=== PATIENT | female | born 1990 | race Caucasian/White ===

== ENCOUNTER 2017-01-22 09:00 | Outpatient (CLI) | payer OTHER | END 2017-01-22 09:01 | disposition home or self-care (01) | DX: N76.0 Acute vaginitis (principal) ==

== ENCOUNTER 2019-07-29 08:29 | Emergency (ER) | payer OTHER ==
--- NOTE | 2019-07-29 08:39 | ED Physician Documentation ---
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 No: Moving Associated symptoms: No: Weakness, Numbness Similar symptoms before: Has not had sx before Recently seen: Not recently seen Review of Systems Skin: reports: Laceration (s) Neurologic: denies: Focal weakness, Numbness, Near syncope PD PAST MEDICAL HISTORY - Past Medical History Past Medical History: No Cardiovascular: None Endocrine/Autoimmune: None - Present Medications Home Medications: Ambulatory Orders Medication Instructions Recorded Confirmed cephALEXin [Keflex] 250 mg PO ONCE 07/29/19 07/29/19 - Allergies Allergies/Adverse Reactions: Allergies Allergy/AdvReac Type Severity Reaction Status Date / Time No Known Drug Allergies Allergy Verified 07/29/19 08:39 PD ED PE NORMAL - Vitals Vital signs reviewed: Yes - General General: Alert and oriented X 3, No acute distress, Well developed/nourished - Derm Derm: Normal color, Warm and dry - Extremities Extremities: Other (The right index finger tip shows a partial thickness avulsion off the skin. It does not go down to the fatty tissue. It does appear like some coffee grind in the wound which is irrigated by nursing staff. There is no active bleeding at this time. The very tip of the nail is cut back but there is no real disruption of the nailbed. There is no injury at the joints.) - Neuro Neuro: Alert and oriented X 3, No motor deficit, No sensory deficit, Normal speech Results - Vitals Vitals: Vital Signs - 24 hr 07/29/19 08:36 Temperature 36.0 C L Heart Rate 58 L Respiratory 16 Rate Blood Pressure 120/80 O2 Saturation 98 Oxygen O2 Source Room air PD MEDICAL DECISION MAKING - ED course Complexity details: re-evaluated patient (The wound had some lidocaine on it for a few minutes to help with numbing and then it was cleansed by nursing staff with removal of the coffee ground material. It is now clean and is dressed by nursing staff. She was given a tetanus booster as well.), considered differential, d/w patient Departure - Departure Disposition: 01 Home, Self Care Clinical Impression: Amputation of finger tip Qualifiers: Encounter type: initial encounter Qualified Code(s): S68.119A - Complete traumatic metacarpophalangeal amputation of unspecified finger, initial encounter Condition: Stable Record reviewed to determine appropriate education?: Yes Instructions: ED Laceration Amputation Finger Tip Open Tx Follow-Up: Jose Rafael Sheikh DO [Primary Care Provider] - Comments: Cleanse wound couple times a day with soap and water and apply ointment lightly to keep it slightly moist. Keep it bandaged during work and such to protect it but have it open at other times so does not get overly moist. Tylenol ibuprofen or naproxen as needed for pains. This looks just partial thickness so should healing without scarring over a week or so. Recheck if signs of infection. You did receive a tetanus booster as well today and that should be good for 10 years.
[2019-07-29 08:41] VITALS: BP 120/80
[2019-07-29] MEDS ORDERED: IBUPROFEN 600 MG TABLET PO STA (08:49)
[2019-07-29] MEDS ORDERED: TETANUS/DIPHTHERIA/PERTUSSIS 0.5 ML SYRINGE IM ONE (08:49)
[2019-07-29] MEDS ORDERED: LIDOCAINE OINTMENT 5% 35.44 GM TUBE TOP STA (08:49)
[2019-07-29] MEDS ORDERED: ACETAMINOPHEN 325 MG TABLET PO STA (08:49)
== END 2019-07-29 09:23 | disposition home or self-care (01) ==
LOC: ED 08:29
DX: S68.620A Partial traumatic transphalangeal amputation of right index finger, initial encounter (principal); W29.0XXA Contact with powered kitchen appliance, initial encounter; Y93.89 Activity, other specified; Y99.0 Civilian activity done for income or pay; Z23 Encounter for immunization
CPT/HCPCS: 90471; 90715; 99283; A9270

== ENCOUNTER 2020-10-03 13:05 | Emergency (ER) | payer OTHER ==
--- NOTE | 2020-10-03 14:12 | ED Physician Documentation ---
History of Present Illness - Stated complaint Stated Complaint: BODY PX - Chief complaint Chief Complaint: General - History obtained from History obtained from: Patient - Additonal information Additional information: For the last 2 days she has had epigastric pain radiating like a band around to her back, feels like her bra is on too tight. It got worse today when picking up her dog. It is worse with motion and twisting. Does not get worse after eating. There is no associated fever or shortness of breath. No history of abdominal surgeries or other major health issues. Review of Systems Constitutional: denies: Fever, Chills Nose: denies: Rhinorrhea / runny nose, Congestion Cardiac: reports: Chest pain / pressure. 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 : None HEENT: None Psych: None Musculoskeletal: None Derm: None - Past Surgical History Ortho: Arthroscopic surgery - Present Medications Home Medications: Ambulatory Orders Medication Instructions Recorded Confirmed cephALEXin [Keflex] 250 mg PO ONCE 07/29/19 07/29/19 Cyclobenzaprine [Flexeril] 10 mg PO TID PRN #20 tablet 10/03/20 - Allergies Allergies/Adverse Reactions: Allergies Allergy/AdvReac Type Severity Reaction Status Date / Time No Known Drug Allergies Allergy Verified 10/03/20 13:10 - Social History Does the pt smoke?: No Smoking Status: Never smoker Does the pt drink ETOH?: Yes Does the pt have substance abuse?: No - Immunizations Immunizations are current?: Yes Immunizations: TDAP >10years/unknown PD ED PE NORMAL - Vitals Vital signs reviewed: Yes - General General: Alert and oriented X 3, No acute distress - HEENT HEENT: Pharynx benign - Neck Neck: Supple, no meningeal sign, No bony TTP - Cardiac Cardiac: RRR, No murmur - Respiratory Respiratory: No respiratory distress, Clear bilaterally - Abdomen Abdomen: Normal bowel sounds, Soft, Non tender - Back Back: Other (She does have some seemingly muscular tenderness around the ribs on both sides low down) - Derm Derm: Normal color, Warm and dry - Extremities Extremities: No edema, No calf tenderness / cord - Neuro Neuro: Alert and oriented X 3, Normal speech Results - Vitals Vitals: Vital Signs - 24 hr 10/03/20 10/03/20 10/03/20 13:10 13:30 14:17 Temperature 37.3 C Heart Rate 79 86 67 Respiratory 18 18 18 Rate Blood Pressure 130/68 137/102 H 121/69 O2 Saturation 98 100 96 10/03/20 14:30 Temperature Heart Rate 67 Respiratory 18 Rate Blood Pressure 106/50 L O2 Saturation 96 Oxygen O2 Source Room air - EKG (time done) 1415 Rate: Rate (enter#) (76) Rhythm: NSR [place]: Normal Intervals: Normal [place] QRS: Normal Ischemia: Normal ST segments Computer interpretation: Agree with computer - Labs Labs: Laboratory Tests 10/03/20 10/03/20 10/03/20 13:58 14:30 14:30 WBC 7.1 RBC 4.67 Hgb 13.3 Hct 40.7 MCV 87.2 MCH 28.5 MCHC 32.7 RDW 13.0 Plt Count 293 MPV 8.9 Neut # (Auto) 5.0 Lymph # (Auto) 1.6 [place] # (Auto) 0.4 Eos # (Auto) 0.1 Baso # (Auto) 0.1 Absolute Nucleated RBC 0.00 Nucleated RBC % 0.0 Sodium 136 Potassium 3.8 Chloride 105 Carbon Dioxide 24 Anion Gap 7.0 BUN 11 Creatinine 0.7 Estimated GFR (MDRD) 100 Glucose 97 Calcium 9.2 Total Bilirubin 0.5 AST 15 ALT 15 Alkaline Phosphatase 53 Troponin I High Sens Total Protein 8.2 Albumin 4.4 Globulin 3.8 Albumin/Globulin Ratio 1.2 Lipase 34 Urine Color YELLOW Urine Clarity CLEAR Urine pH 6.0 Ur Specific [place] 1.010 Urine Protein NEGATIVE Urine Glucose (UA) NEGATIVE Urine Ketones NEGATIVE Urine Occult Blood MODERATE H Urine Nitrite NEGATIVE Urine Bilirubin NEGATIVE Urine Urobilinogen 0.2 (NORMAL) Ur Leukocyte Esterase NEGATIVE Urine RBC 0-5 Urine WBC 0-3 Ur Squamous Epith Cells RARE Squamous Urine Bacteria Few Ur Microscopic Review INDICATED Urine Culture Comments NOT INDICATED Urine HCG, Qual NEGATIVE 10/03/20 14:30 WBC RBC Hgb Hct MCV MCH MCHC RDW Plt Count MPV Neut # (Auto) Lymph # (Auto) [place] # (Auto) Eos # (Auto) Baso # (Auto) Absolute Nucleated RBC Nucleated RBC % Sodium Potassium Chloride Carbon Dioxide Anion Gap BUN Creatinine Estimated GFR (MDRD) Glucose Calcium Total Bilirubin AST ALT Alkaline Phosphatase Troponin I High Sens < 2.3 L Total Protein Albumin Globulin Albumin/Globulin Ratio Lipase Urine Color Urine Clarity Urine pH Ur Specific [place] Urine Protein Urine Glucose (UA) Urine Ketones Urine Occult Blood Urine Nitrite Urine Bilirubin Urine Urobilinogen Ur Leukocyte Esterase Urine RBC Urine WBC Ur Squamous Epith Cells Urine Bacteria Ur Microscopic Review Urine Culture Comments Urine HCG, Qual PD MEDICAL DECISION MAKING - ED course ED course: Is worse with twisting and bending, so seems most likely to be musculoskeletal with this pain that is basically high epigastric and radiating around like a band on both sides but the differential diagnosis includes vascular issues heart problems or biliary etiology. She is nontender so doubt active gallbladder disease. She is PE RC negative. Departure - Departure Disposition: 01 Home, Self Care Clinical Impression: Epigastric pain Condition: Good Record reviewed to determine appropriate education?: Yes Instructions: ED Acute Pain [facility] Prescriptions: Cyclobenzaprine [Flexeril] 10 mg PO TID PRN #20 tablet PRN Reason: Spasms Comments: Pain seems most consistent with muscular etiology. Return for new or worsening symptoms. Follow-up with your physician. Ibuprofen as needed for the pain. Do not drink or drive with a muscle relaxer.
[2020-10-03 14:24] LABS: BILIRUBIN,URINE NEGATIVE (NEGATIVE); GLUCOSE, URINE (UA) NEGATIVE (NEGATIVE); KETONES,URINE (UA) NEGATIVE (NEGATIVE); LEUKOCYTE ESTERASE, URINE NEGATIVE (NEGATIVE); NITRITE,URINE NEGATIVE (NEGATIVE); OCCULT BLOOD,URINE MODERATE (NEGATIVE); PROTEIN,URINE NEGATIVE (NEGATIVE); UROBILINOGEN,URINE 0.2 (NORMAL) E.U./dL (NORMAL)
[2020-10-03 14:27] LABS: CLARITY,URINE CLEAR (CLEAR); HCG UR QUAL NEGATIVE
[2020-10-03 14:35] LABS: BASOPHILS # (AUTO) 0.1 10^3/uL (0.0-0.1); BASOPHILS % (AUTO) 0.7 %; EOSINOPHILS # (AUTO) 0.1 10^3/uL (0.0-0.7); HGB - HEMOGLOBIN 13.3 g/dL (12.0-16.0); LYMPHOCYTES # (AUTO) 1.6 10^3/uL (1.5-3.5); LYMPHOCYTES % (AUTO) 22.1 %; MEAN CORPUSCULAR HEMOGLOBIN 28.5 pg (27.0-31.0); MEAN CORPUSCULAR HGB CONC 32.7 g/dL (32.0-36.0); MEAN CORPUSCULAR VOLUME 87.2 fL (81.0-99.0); MEAN PLATELET VOLUME 8.9 fL (7.9-10.8); MONOCYTES # (AUTO) 0.4 10^3/uL (0.0-1.0); MONOCYTES % (AUTO) 4.9 %; NEUTROPHILS % (AUTO) 70.7 %; PLT - PLATELET COUNT 293 10^3/uL (130-450); RED BLOOD COUNT 4.67 10^6/uL (4.20-5.40); WHITE BLOOD COUNT 7.1 x10^3/uL (4.8-10.8)
--- NOTE | 2020-10-03 14:42 | XRAY Report ---
PROCEDURE: Chest 1 View X-Ray INDICATIONS: low chest pain TECHNIQUE: One view of the chest was acquired. COMPARISON: None. FINDINGS: Surgical changes and devices: None. Lungs and pleura: No pleural effusions or pneumothorax. Lungs are clear. Mediastinum: Mediastinal contours appear normal. Heart size is normal. Bones and chest wall: No suspicious bony lesions. Overlying soft tissues appear unremarkable. IMPRESSION: Chest without acute cardiopulmonary abnormalities. Reviewed by: Selvin Pro MD on 10/03/2020 2:40 PM PST Approved by: Selvin Pro MD on 10/03/2020 2:40 PM PST Station ID: [id number]
[2020-10-03 14:44] LABS: BACTERIA,URINE Few /HPF (None Seen); RBC,URINE 0-5 /HPF (0-5); SQUAMOUS EPITHELIAL CELL,UR RARE Squamous (<= Few)
[2020-10-03 14:52] LABS: ALBUMIN 4.4 g/dL (3.2-5.5); ALBUMIN/GLOBULIN RATIO 1.2 (1.0-2.2); BILIRUBIN,TOTAL 0.5 mg/dL (0.2-1.0); CALCIUM 9.2 mg/dL (8.5-10.3); CREATININE 0.7 mg/dL (0.4-1.0); TOTAL PROTEIN 8.2 g/dL (6.7-8.2)
[2020-10-03 14:59] VITALS: BP 106/50
== END 2020-10-03 15:10 | disposition home or self-care (01) ==
LOC: ED 13:05
DX: R10.13 Epigastric pain (principal)
CPT/HCPCS: 36415; 71045; 80053; 81001; 81003; 81025; 83690; 84484; 85025; 87086; 93005; 99284

== ENCOUNTER 2022-08-19 08:59 | Outpatient (CLI) | payer OTHER ==
[2022-08-19 12:03] LABS: BASOPHILS % (AUTO) 0.7 %; EOSINOPHILS # (AUTO) 0.2 10^3/uL (0.0-0.7); EOSINOPHILS % (AUTO) 3.1 %; HCT - HEMATOCRIT 37.9 % (37.0-47.0); HGB - HEMOGLOBIN 12.3 g/dL (12.0-16.0); LYMPHOCYTES # (AUTO) 2.1 10^3/uL (1.5-3.5); LYMPHOCYTES % (AUTO) 37.4 %; MEAN CORPUSCULAR HGB CONC 32.5 g/dL (32.0-36.0); MEAN CORPUSCULAR VOLUME 86.1 fL (81.0-99.0); MEAN PLATELET VOLUME 9.5 fL (7.9-10.8); MONOCYTES # (AUTO) 0.3 10^3/uL (0.0-1.0); MONOCYTES % (AUTO) 5.8 %; NEUTROPHILS # (AUTO) 2.9 10^3/uL (1.5-6.6); NEUTROPHILS % (AUTO) 52.8 %; PLT - PLATELET COUNT 266 10^3/uL (130-450); WHITE BLOOD COUNT 5.5 x10^3/uL (4.8-10.8)
[2022-08-19 12:36] LABS: THYROID STIMULATING HORMONE 0.76 uIU/mL (0.34-5.60)
[2022-08-19 12:38] LABS: ALBUMIN 3.8 g/dL (3.2-5.5); ALBUMIN/GLOBULIN RATIO 1.1 (1.0-2.2); ALKALINE PHOSPHATASE 46 IU/L (42-121); ALT ALANINE AMINOTRANSFERASE 20 IU/L (10-60); AST ASPARTATE AMINOTRANSFERASE 23 IU/L (10-42); BILIRUBIN,TOTAL 0.6 mg/dL (0.2-1.0); BUN - BLOOD UREA NITROGEN 13 mg/dL (6-20); CARBON DIOXIDE - CO2 26 mmol/L (21-32); CHLORIDE 107 mmol/L (101-111); CHOL/HDL RATIO 4.2 (<4.4); CHOLESTEROL 191 mg/dL; CREATININE 0.8 mg/dL (0.4-1.0); GFR - MDRD 84 (>89); GLUCOSE 98 mg/dL (70-100); HDL CHOLESTEROL 46 mg/dL; LDL CHOLESTEROL,CALCULATED 125 mg/dL; LDL/HDL RATIO 2.7 (<4.4); SODIUM 138 mmol/L (135-145); TOTAL PROTEIN 7.3 g/dL (6.7-8.2); TRIGLYCERIDES 101 mg/dL; VLDL CHOLESTEROL 20 mg/dL
== END 2022-08-19 09:00 | disposition home or self-care (01) ==
LOC: LAB.N 08:59
PROVIDERS: ATTEND Physician Assistant
DX: Z13.9 Encounter for screening, unspecified (principal); Z13.220 Encounter for screening for lipoid disorders; Z13.29 Encounter for screening for other suspected endocrine disorder
CPT/HCPCS: 36415; 80053; 80061; 83721; 84443; 85025

== ENCOUNTER 2023-02-08 15:25 | Outpatient (CLI) | payer OTHER ==
[2023-02-10 20:07] LABS: AFP VALUE 35.2 ng/mL (.); DIA MOM 1.48 (.); DIA VALUE 191.82 pg/mL (.); DSR (BY AGE) 1 IN 570 (.); DSR (SECOND TRIMESTER) 1 IN 1159 (.); GEST. AGE ON COLLECTION DATE 18.4 WEEKS (.); HCG MOM 1.49 (.); HCG VALUE 34665 mIU/mL (.); INSULIN DEP DIABETES No (.); MATERNAL AGE AT EDD 31.5 yr (.); MULTIPLE GESTATION No (.); OPEN SPINA BIFIDA RISK 1 IN 10000 (.); RACE Caucasian (.); RESULTS Report (.); TEST RESULTS *Screen Negative* (.); TRISOMY 18 RISK Not increased (.); UE3 MOM 1.58 (.); UE3 VALUE 2.28 ng/mL (.); WEIGHT 204 lbs (.)
== END 2023-02-08 15:26 | disposition home or self-care (01) ==
LOC: LAB 15:25
PROVIDERS: ATTEND Nurse Practitioner Obstetrics & Gynecology
DX: Z13.79 Encounter for other screening for genetic and chromosomal anomalies (principal)
CPT/HCPCS: 36415; 81511

== ENCOUNTER 2023-02-22 16:00 | Outpatient (CLI) | payer OTHER ==
--- NOTE | 2023-02-23 14:39 | Ultrasound Report ---
PROCEDURE: OB Detailed Eval INDICATIONS: SUPERVISION OF NORMAL OUTSIDE/PRIOR DATING DATA: Last menstrual period (LMP): 10/02/2022. LMP-based estimated date of delivery (MAYELA): 07/09/2023. First dating scan (date and location): 11/27/2022. Estimated date of delivery (MAYELA) from first dating scan: 07/08/2023. The below data below was generated using the working MAYELA of 07/08/2023 TECHNIQUE: Real-time scanning was performed of the fetus, with image documentation and biometric measurements. Endovaginal scanning: Not indicated COMPARISON: None. FINDINGS: General: A single living intrauterine gestation is present. Presentation: Breech Placenta: Placental position is posterior, without previa. Amniotic fluid index: 14.4 cm, normal for gestational age. heart rate: 135 beats per minute. Maternal cervical canal: 4.2 cm long; normal length is 2.5 cm or more. biometrics: Biparietal diameter: 4.77 cm, 20 weeks, 3 days. Head circumference: 18.56 cm, 20 weeks, 6 days. Abdominal circumference: 16.75 cm, 21 weeks, 5 days. Femur length: 3.68 cm, 21 weeks, 5 days. Estimated gestational age from initial scan: 20 weeks, 4 days. Composite gestational age from present scan: 21 weeks, 1 day. Estimated weight and percentile: 436.2 g, 92.6% Measurement variability in biometric dating: +/- 10 days from 12-20 weeks gestation, +/- 2 weeks from 20-30 weeks gestation, +/- 3 weeks at 30 weeks gestation or later. Anatomic survey: Neuro: Ventricles are normal at less than 10 mm. Cisterna magna is normal at 3-11 mm. Cerebellum i s normal in size and morphology. Nuchal skin fold: Normal at less than 6 mm between 14 and 20 weeks gestational age. Face: Nose and lips, facial profile are normal. Spine: No evidence for spina bifida. Heart: 4-chambered heart is present, with normal ventricular outflow tracts. Diaphragm: Diaphragm is intact. Stomach: Left-sided stomach is present. Kidneys: No hydronephrosis. Normal is less than 5 mm in 2nd trimester, less than 7 mm in 3rd trimester. Cord: 3 vessel cord has orthotopic insertion. Bladder: Normal in size. Extremities: All 4 extremities are visualized. 2 uterine fibroids are seen measures 3.1 x 1.9 x 2.4 cm in right anterior myometrium and 3.1 x 2 x 3 cm in left anterior myometrium. Right ovarian cyst is also seen measures 1.5 x 1.8 x 1.5 cm in size. IMPRESSION: 1. Single live intrauterine gestation with fetus in breech presentation. heart rate is 135 bpm. Normal amount of amniotic fluid. Normal growth. Estimated weight is at 92.6%. 2. Normal anatomic survey. 3. 2 maternal uterine fibroids as above. Maternal right ovarian cyst as above. Reviewed by: Javier Peres MD on 02/23/2023 2:38 PM PDT Approved by: Javier Peres MD on 02/23/2023 2:38 PM PDT Station ID: [id number]
== END 2023-02-22 16:01 | disposition home or self-care (01) ==
LOC: DI 16:00
PROVIDERS: ATTEND Nurse Practitioner Obstetrics & Gynecology
DX: O32.1XX0 Maternal care for breech presentation, not applicable or unspecified (principal); O34.12 Maternal care for benign tumor of corpus uteri, second trimester; D25.9 Leiomyoma of uterus, unspecified; O34.82 Maternal care for other abnormalities of pelvic organs, second trimester; N83.201 Unspecified ovarian cyst, right side; Z36.89 Encounter for other specified antenatal screening; Z3A.21 21 weeks gestation of pregnancy

== ENCOUNTER 2023-03-31 08:35 | Outpatient (CLI) | payer OTHER ==
[2023-03-31 10:03] LABS: HCT - HEMATOCRIT 29.8 % (37.0-47.0); HGB - HEMOGLOBIN 9.7 g/dL (12.0-16.0); MEAN CORPUSCULAR HEMOGLOBIN 27.9 pg (27.0-31.0); MEAN CORPUSCULAR HGB CONC 32.6 g/dL (32.0-36.0); MEAN CORPUSCULAR VOLUME 85.6 fL (81.0-99.0); MEAN PLATELET VOLUME 9.2 fL (7.9-10.8); RED BLOOD COUNT 3.48 10^6/uL (4.20-5.40); RED CELL DISTRIBUTION WIDTH 12.8 % (12.0-15.0)
== END 2023-03-31 08:36 | disposition home or self-care (01) ==
LOC: LAB 08:35
PROVIDERS: ATTEND Nurse Practitioner Obstetrics & Gynecology
DX: Z36.9 Encounter for antenatal screening, unspecified (principal)
CPT/HCPCS: 36415; 82950; 85027

== ENCOUNTER 2023-04-05 15:29 | Outpatient (CLI) | payer OTHER ==
[2023-04-05 15:51] VITALS: BP 110/65
[2023-04-05] MEDS ORDERED: FERRIC GLUCONATE 125 MG in SODIUM CHLORIDE 0.9% 100ML 100 ML IV ONE (16:00)
== END 2023-04-05 17:20 | disposition home or self-care (01) ==
LOC: WFO 15:29 → FBP 15:30 → WFO 17:20
PROVIDERS: ATTEND Nurse Practitioner Obstetrics & Gynecology
DX: O99.019 Anemia complicating pregnancy, unspecified trimester (principal); Z3A.00 Weeks of gestation of pregnancy not specified
CPT/HCPCS: 96365; J2916

== ENCOUNTER 2023-04-19 10:58 | Outpatient (CLI) | payer OTHER ==
[2023-04-19] MEDS ORDERED: SODIUM CHLORIDE FLUSH 0.9% 10 ML SYRINGE IVP PRN (11:06)
[2023-04-19] MEDS ORDERED: FERRIC GLUCONATE 125 MG in SODIUM CHLORIDE 0.9% 100ML 100 ML IV ONE (11:30)
[2023-04-19 13:11] VITALS: BP 110/64
== END 2023-04-19 13:13 | disposition home or self-care (01) ==
LOC: WFO 10:58 → FBP 10:59 → WFO 13:13
PROVIDERS: ATTEND Nurse Practitioner Obstetrics & Gynecology
DX: O99.013 Anemia complicating pregnancy, third trimester (principal); Z3A.00 Weeks of gestation of pregnancy not specified

== ENCOUNTER 2023-05-19 11:45 | Outpatient (CLI) | payer OTHER ==
--- NOTE | 2023-05-19 15:02 | Ultrasound Report ---
PROCEDURE: OB F/U or Repeat INDICATIONS: UTERINE SIZE DATE DISCREPANCY OUTSIDE/PRIOR DATING DATA: Last menstrual period (LMP): 10/02/2022. LMP-based estimated date of delivery (MAYELA): 07/09/2023. First dating scan (date and location): 11/27/2022. Estimated date of delivery (MAYELA) from first dating scan: 07/08/2023. The below data below was generated using the ultrasound MAYELA of 07/08/2023 TECHNIQUE: Real-time scanning was performed of the fetus, with image documentation and biometric measurements. COMPARISON: 02/22/2023. FINDINGS: General: A single living intrauterine gestation is present. Presentation: Cephalic Placenta: Placental position is posterior, without previa. Amniotic fluid index: 12.6 cm, within normal limits for gestational age. Largest pocket 6.3 cm. heart rate: 145 beats per minute. Maternal cervical canal: 3.3 cm long; normal length is 2.5 cm or more. biometrics: Biparietal diameter: 8.8 cm, 35 weeks 3 days. 96 percentile. Head circumference: 30.9 cm, 34 weeks 3 days. 56 percentile. Abdominal circumference: 31.8 cm, 35 weeks 5 days. 99th percentile. Femur length: 6.7 cm, 34 weeks 5 days. 84th percentile. (Previously 93rd percentile). Estimated gestational age from initial scan: 32 weeks 6 days Composite gestational age from present scan: 35 weeks 1 day Estimated weight and percentile: 2632 g, 97th percentile Measurement variability in biometric dating: +/- 10 days from 12-20 weeks gestation, +/- 2 weeks from 20-30 weeks gestation, +/- 3 weeks at 30 weeks gestation or more. Other: Maternal uterine fibroids. Anterior mid 3.3 x 3.1 x 1.1 cm. Anterior mid 3.4 x 2.6 x 1.4 cm. Anterior fundal 4.6 x 4.6 x 2.2 cm. IMPRESSION: 1. [place] living intrauterine at 35 weeks 1 day based on today's ultrasound. This is dis cordant with the prior dating from initial ultrasound. Fetus is in the 97th percentile for weight. Co ncern for macrosomia. Recommend clinical correlation. Cephalic position. 2. Normal placenta and amniotic fluid. 3. Maternal uterine fibroids x3. Largest measuring 4.6 cm at the fundus. Reviewed by: Idris Silva MD on 05/19/2023 3:01 PM PDT Approved by: Idris Silva MD on 05/19/2023 3:01 PM PDT Station ID: [id number]
== END 2023-05-19 11:46 | disposition home or self-care (01) ==
LOC: DI 11:45
PROVIDERS: ATTEND Nurse Practitioner Obstetrics & Gynecology
DX: O26.843 Uterine size-date discrepancy, third trimester (principal); O34.13 Maternal care for benign tumor of corpus uteri, third trimester; D25.9 Leiomyoma of uterus, unspecified; Z3A.35 35 weeks gestation of pregnancy

== ENCOUNTER 2023-07-02 11:27 | Inpatient (IN) | payer OTHER ==
[2023-07-02] MEDS ORDERED: OXYTOCIN 10 UNIT/ML VIAL IM PRN (12:00)
[2023-07-02] MEDS ORDERED: TERBUTALINE 1 MG/ML VIAL SUBQ PRN (12:00)
[2023-07-02] MEDS ORDERED: LABETALOL 20 MG/4 ML SYRINGE IVP PRN ×3 (12:00)
[2023-07-02] MEDS ORDERED: ACETAMINOPHEN 500 MG TABLET PO PRN (12:00)
[2023-07-02] MEDS ORDERED: hydrALAZINE INJ 20 MG/ML VIAL IVP PRN ×2 (12:00)
[2023-07-02] MEDS ORDERED: lidocaine 1% 20 ML MDV ID PRN (12:00)
[2023-07-02] MEDS ORDERED: SODIUM CHLORIDE FLUSH 0.9% 10 ML SYRINGE IVP PRN ×2 (12:00→21:22)
[2023-07-02] MEDS ORDERED: miSOPROStoL 200 MCG TABLET PR PRN (12:00)
[2023-07-02] MEDS ORDERED: OXYTOCIN/SODIUM CHLORIDE 500 ML IV PRN ×2 (12:00→21:22)
[2023-07-02] MEDS ORDERED: CARBOPROST TROMETHAMINE 250 MCG/ML AMP IM PRN (12:00)
[2023-07-02] MEDS ORDERED: TRANEXAMIC ACID IN NACL 1,000 MG/100 ML BAG IV PRN (12:00)
[2023-07-02] MEDS ORDERED: miSOPROStoL 200 MCG TABLET BC PRN (12:00)
[2023-07-02] MEDS ORDERED: METHYLERGONOVINE 0.2 MG/ML VIAL IM PRN (12:00)
[2023-07-02] MEDS ORDERED: NIFEdipine 10 MG CAPSULE PO PRN (12:00)
[2023-07-02] MEDS ORDERED: fentaNYL 100 MCG/2 ML VIAL IVP PRN ×2 (12:00→19:58)
[2023-07-02 12:10] LABS: BASOPHILS % (AUTO) 0.2 %; EOSINOPHILS % (AUTO) 0.4 %; HCT - HEMATOCRIT 36.2 % (37.0-47.0); LYMPHOCYTES # (AUTO) 1.4 10^3/uL (1.5-3.5); LYMPHOCYTES % (AUTO) 13.7 %; MEAN CORPUSCULAR HGB CONC 33.1 g/dL (32.0-36.0); MEAN CORPUSCULAR VOLUME 84.6 fL (81.0-99.0); MEAN PLATELET VOLUME 10.3 fL (7.9-10.8); MONOCYTES # (AUTO) 0.4 10^3/uL (0.0-1.0); MONOCYTES % (AUTO) 4.1 %; NEUTROPHILS # (AUTO) 8.3 10^3/uL (1.5-6.6); NEUTROPHILS % (AUTO) 80.9 %; PLT - PLATELET COUNT 243 10^3/uL (130-450); RED BLOOD COUNT 4.28 10^6/uL (4.20-5.40); RED CELL DISTRIBUTION WIDTH 14.4 % (12.0-15.0); WHITE BLOOD COUNT 10.2 x10^3/uL (4.8-10.8)
[2023-07-02] MEDS ORDERED: ROPIVACAINE 0.2% 200 MG/100 ML BAG EP ONE (13:18)
[2023-07-02] MEDS: LACTATED RINGERS 1,000 ML IV PRN ×3 (13:20→18:24)
--- NOTE | 2023-07-02 14:05 | ANESTHESIA ---
Pre-Anesthesia VS, & Labs - Diagnosis labor - Procedure labor epidural Vital Signs: Temp Pulse Resp BP Pulse Ox O2 Flow Rate 36.8 C 88 15 121/73 07/02/23 12:06 07/02/23 12:06 07/02/23 12:06 07/02/23 12:06 Height: 5 ft 7 in Weight (kg): 107.501 kg Body Mass Index: 37.0 BMI Classification: Obese - Is Patient ?: Yes - Lab Results Current Lab Results: Laboratory Tests 07/02/23 12:56: Blood Type Recheck O POSITIVE 07/02/23 11:50: WBC 10.2, RBC 4.28, Hgb 12.0, Hct 36.2 L, MCV 84.6, MCH 28.0, MCHC 33.1, RDW 14.4, Plt Count 243, MPV 10.3, Neut # (Auto) 8.3 H, Lymph # (Auto) 1.4 L, [place] # (Auto) 0.4, Eos # (Auto) 0.0, Baso # (Auto) 0.0, Absolute Nucleated RBC 0.00, Nucleated RBC % 0.0 07/02/23 11:50: Blood Type O POSITIVE, Antibody Screen NEGATIVE Lab results reviewed: Yes Fish Bones: 07/02/23 11:50 Home Medications and Allergies Active Medications Acetaminophen (Acetaminophen 500 Mg Tablet) 1,000 mg PO Q8H PRN PRN Reason: Mild Pain or Fever>38C(100.4F) Carboprost Tromethamine (Carboprost Tromethamine 250 Mcg/Ml Amp) 250 mcg IM .ONCE PRN PRN Reason: Hemorrhage Fentanyl (Fentanyl 100 Mcg/2 Ml Vial) 50 mcg IVP Q1H PRN PRN Reason: Severe Pain (score 7-10) Hydralazine HCl (Hydralazine Inj 20 Mg/Ml Vial) 5 - 10 mg IVP Q20M PRN; Protocol PRN Reason: SBP> or= 160 OR DBP> or= 110 Hydralazine HCl (Hydralazine Inj 20 Mg/Ml Vial) 10 mg IVP .ONCE PRN; Protocol PRN Reason: SBP> or= 160 OR DBP> or= 110 Lactated Ringer's (Lr) 500 mls @ 999 mls/hr IV PRN PRN PRN Reason: distress, maternal hypot Oxytocin/Sodium Chloride (Pitocin/Sodium Chloride) 500 mls @ 999 mls/hr IV PRN PRN; Protocol PRN Reason: POST- HEMORR PREVENTION Tranexamic Acid (Tranexamic 1,000 Mg/100ml-Nacl) 1,000 mg in 100 mls @ 600 mls/hr IV Q30M PRN PRN Reason: EBL >1200mL and within 3hr Labetalol HCl (Labetalol 20 Mg/4 Ml Syringe) 20 - 80 mg IVP Q10M PRN; Protocol PRN Reason: SBP> or= 160 OR DBP> or= 110 Labetalol HCl (Labetalol 20 Mg/4 Ml Syringe) 20 mg IVP .ONCE PRN; Protocol PRN Reason: SBP> or= 160 OR DBP> or= 110 Labetalol HCl (Labetalol 20 Mg/4 Ml Syringe) 20 - 40 mg IVP Q10M PRN; Protocol PRN Reason: SBP> or= 160 OR DBP> or= 110 Lidocaine HCl (Lidocaine 1% 20 Ml Mdv) 20 ml ID .ONCE PRN PRN Reason: PERINEAL REPAIR Stop: 07/05/23 12:00 Methylergonovine Maleate (Methylergonovine 0.2 Mg/Ml Vial) 0.2 mg IM .ONCE PRN PRN Reason: Hemorrhage Misoprostol (Misoprostol 200 Mcg Tablet) 600 mcg BC .ONCE PRN PRN Reason: Hemorrhage Misoprostol (Misoprostol 200 Mcg Tablet) 800 mcg DE .ONCE PRN PRN Reason: Hemorrhage Nifedipine (Nifedipine 10 Mg Capsule) 10 - 20 mg PO Q20M PRN; Protocol PRN Reason: SBP> or= 160 OR DBP> or= 110 Oxytocin (Oxytocin 10 Unit/Ml Vial) 10 unit IM .ONCE PRN PRN Reason: Step One if no IV access. Sodium Chloride (Sodium Chloride Flush 0.9% 10 Ml Syringe) 10 ml IVP PRN PRN PRN Reason: NEEDED PER PROVIDER ORDERS Sodium Chloride (Sodium Chloride Flush 0.9% 10 Ml Syringe) 10 ml IVP Q8H TANNA Terbutaline Sulfate (Terbutaline 1 Mg/Ml Vial) 0.25 mg SUBQ .ONCE PRN PRN Reason: Tachystole cephALEXin [Keflex] 250 mg PO ONCE 07/29/19 Allergies/Adverse Reactions: Allergies Allergy/AdvReac Type Severity Reaction Status Date / Time No Known Drug Allergies Allergy Verified 10/03/20 13:10 Anes History & Medical History - Anesthetic History Anesthesia Complications: reports: No previous complications Family history of Anesthesia Complications: Denies Family history of Malignant Hyperthermia: Denies - Medical History Cardiovascular: reports: None Pulmonary: reports: None Gastrointestinal: reports: GERD Urinary: reports: None Neuro: reports: None Musculoskeletal: reports: None Endocrine/Autoimmune: reports: None Blood Disorders: reports: None Skin: reports: None Smoking Status: Never smoker - Surgical History Orthopedic: reports: Arthroscopic surgery Exam General: Alert, Oriented x3, Cooperative Dental: WNL Mouth Openin Fingerbreadth Neck Mobility: Normal Mallampati classification: II Thyromental Distance: 4-6 cm Respiratory: Lungs clear Cardiovascular: Regular rate Plan Anesthesia Type: Epidural Consent for Procedure(s) Verified and Reviewed: Yes Code Status: Attempt Resuscitation ASA classification: 2-Mild systemic disease Is this case an emergency?: No
[2023-07-02] MEDS ORDERED: ROPIVACAINE 0.2% 200 MG/100 ML BAG EP PRN (14:06)
[2023-07-02] MEDS ORDERED: ePHEDrine 50 MG/ML VIAL IVP PRN ×3 (14:06→19:59)
[2023-07-02] MEDS ORDERED: diphenhydrAMINE INJ 50 MG/ML VIAL IVP PRN ×2 (14:06→19:59)
[2023-07-02] MEDS ORDERED: NALOXONE 0.4 MG/ML VIAL IVP PRN ×3 (14:06→19:59)
[2023-07-02] MEDS ORDERED: NALBUPHINE 10 MG/ML AMP IVP PRN ×2 (14:06→19:59)
[2023-07-02] MEDS ORDERED: ONDANSETRON 4 MG/2 ML VIAL IVP PRN ×3 (14:06→19:59)
[2023-07-02] MEDS ORDERED: METOCLOPRAMIDE 10 MG/2 ML VIAL IVP PRN ×3 (14:06→19:59)
--- NOTE | 2023-07-02 15:52 | HISTORY & PHYSICAL EXAMINATION ---
Admit History - Visit Reason Visit Reason: Contractions - : 2 Parity: 0 Premature: 0 Ectopic: 0 : 1 Care: positive: [facility] Risk/History: positive: None Complications This : positive: None Smoking Status: Never smoker - Mother's Labs Mother's Blood Type: positive: O Mother's RH: positive: Positive GBS: positive: Group B Step Negative Rubella Status: positive: Non-immune - HPI Diagnosis/Indication for NST: Other Current [facility] 07/09/23 Gestation 39 Weeks and 0 Days 2 Vital Signs Temperature 36.8 C 07/02/23 12:06 Heart Rate 88 07/02/23 12:06 Respiratory Rate 15 07/02/23 12:06 Blood Pressure 121/73 07/02/23 12:06 Temperature 36.8 C 07/02/23 12:06 Heart Rate 88 07/02/23 12:06 Respiratory Rate 15 07/02/23 12:06 Blood Pressure 121/73 07/02/23 12:06 O2 Saturation If not protocol: Oxygen Flow, liters/minute - NST Procedure NST reactive. FHR baseline 140s, moderate variability, + accels, no decels Contractions palpate strong every 2-3 minutes with soft resting tone Meds/Allgy - Home Medications Home Medications: Ambulatory Orders Medication Instructions Recorded Confirmed cephALEXin [Keflex] 250 mg PO ONCE 07/29/19 07/29/19 Cyclobenzaprine [Flexeril] 10 mg PO TID PRN #20 tablet 10/03/20 - Allergies Allergies/Adverse Reactions: Allergies Allergy/AdvReac Type Severity Reaction Status Date / Time No Known Drug Allergies Allergy Verified 10/03/20 13:10 Review of Systems - Constitutional Constitutional: denies: Fever, Chills, Malaise - Eyes Eyes: denies: Pain, Blurred vision, Spots in vision, Dipolpia - Cardiovascular Cariovascular: denies: Irregular heart rate, Palpitations, Chest pain, Edema, Lightheadedness - Respiratory Respiratory: denies: Cough, Sputum production, SOB at rest - Gastrointestinal Gastrointestinal: denies: Constipation, Diarrhea, Nausea, Vomiting - Genitourinary Genitourinary: denies: Dysuria - Integumentary Integumentary: denies: Rash, Pruritis - Neurological Neurological: denies: Headache - Psychiatric Psychiatric: denies: Depression, Anxiety - Hematologic/Lymphatic Hematologic/Lymphatic: denies: Anemia Physical - Abdominal Exam Vital Signs: Temp Pulse Resp BP Pulse Ox O2 Flow Rate 36.8 C 88 15 121/73 07/02/23 12:06 07/02/23 12:06 07/02/23 12:06 07/02/23 12:06 Contraction Frequency (min/apart): 2-3 Contraction Intensity: positive: Strong Uterine Resting Tone: positive: Soft - Monitoring Heart Rate Baseline: 140 Strip Review: positive: Category I - Presentation Presentation: positive: Vertex - Vaginal Exam Membranes: positive: Membranes intact - Speculum Exam Speculum Exam Performed: positive: No Findings: positive: Other Plan for Labor - Plan For Labor I expect patient to be DC'd or transferred within 96 hours.: Yes Plan for Labor: HPI: Urvashi is a 32yo @ 39.0wks gestation by LMP c/w 8.1wk U/S who presents to [facility] with c/o contractions that have increased in both frequency and intensity since this morning at approximately 0230am. Upon arrival she is noted to contract every 2-3 minutes with soft resting tone. At her routine visit this morning SVE was 4/80/-3, posterior and vertex with intact membranes. She reports she had a small amount of light vaginal spotting after SVE this morning but otherwise denies vaginal bleeding or leakage of fluid. She reports +FM. She is coping well with her contractions and she is supported by her [place]. She has been a patient of [facility] for the duration of her which has remained uncomplicated with the exception of moderate anemia which was treated with IV iron infusion and PO iron supplementation with repeat CBC markedly improved. She will be admitted to [facility] for expectant management. Dating criteria: LMP 10/02/2022 Initial U/S @ 8.1wks c/w LMP dating Serial exams - agree Immunization history: Has not received COVID vaccine-declines. 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 SAB x 0. TAB x 1. Last pap 06/2022 WNL, HPV neg. Denies history of gonorrhea, chlamydia, genital herpes, oral herpes or any other STI. Sexual partner does NOT have HSV (oral or genital). Medical Hx: depression Surgical Hx: R ACL repair as a teenage Social Hx: Sexual behavior: Monogamous with male partner Stopped drinking alcohol due to . Denies current use of tobacco, marijuana or other recreational drugs. Reports that she is safe in current relationship. Family Hx: Denies family history of congenital anomalies, Cystic Fibrosis or chromosomal abnormalities. course: O positive antibody negative Rubella non-immune, varicella non-immune HIV non-reactive; RPR non-reactive Hep B neg, Hep C neg Initial U/S @ 8.1wks c/w LMP dating Influenza vaccine - declined COVID-19 vaccine - declined Tdap vaccine - declined FAS WNL. Posterior placenta, no previa. Size c/w dating (EFW 92%tile). 3VC. AIDA WNL. 2 Uterine fibroids noted (3cm x 2cm & 3cm x 3cm). Glucola 98 Growth and AIDA at 32.5wks EFW 97%tile and AIDA 12.6cm GBS negative Physical exam: Normocephalic, atraumatic Heart RRR w/o M/G/R Lungs CTAB Abdomen gravid, soft, nontender EFW 3800g FHR baseline 140s, moderate variability, + accels, no decels Contractions palpate strong every 2-3 minutes with soft resting tone SVE deferred Bilateral LE's trace edema. Mood is good. Assessment: 32yo @ 39.0wks gestation by 8.1wk U/S Early labor FHR Category I GBS negative Plan: Admit to [facility] for expectant management. Intermittent heart rate auscultation Encouraged ambulation and position changes. Jacuzzi PRN. Nitrous oxide PRN. Epidural per maternal request. Anticipate .
--- NOTE | 2023-07-02 16:33 | PROVIDER PROGRESS NOTE ---
Labor Progress Note - Uterine Monitoring Uterine Monitoring Mode: positive: External toco Contraction Frequency (min/apart): 2-4 Contraction Intensity: positive: Strong Uterine Resting Tone: positive: Soft - Monitoring Monitor Mode: positive: External ultrasound Heart Rate Baseline: 135 Heart Rate Variability: positive: Moderate (6-25 bmp) Accelerations: positive: Present, 15x15 Decelerations: positive: None Strip Review: positive: Category I - Vaginal Exam Dilation (in cm): 9 Effacement (%): 100 Station: -1 - Labor Progress Note Labor Progress Note/Additional Text: S: Feeling more pressure with peak of contractions but states the pressure goes away with contractions. Her pain is well controlled with epidural and her is supportive at the bedside. O: FHR baseline 135, moderate variability, + accels, no decels Contractions palpate strong every 2-4 minutes with soft resting tone SROM at 1600 was noted to be a moderate amount of clear fluid SVE 9/100/-1 and vertex A: 32yo @ 39.0wks gestation by LMP c/w 8.1wk U/S Active labor FHR Category I GBS negative P: Right side lying with peanut ball in place x 30 minutes. Repeat SVE with increased, constant pressure or indications. Continuous monitoring. Maintain epidural for pain management. Anticipate .
[2023-07-02] MEDS ORDERED: ceFAZolin 2 GM in SODIUM CHLORIDE 0.9% 100ML 100 ML IV STA (19:07)
[2023-07-02] MEDS ORDERED: AZITHROMYCIN INJ 500 MG in SODIUM CHLORIDE 0.9% 250 ML IV ONE (19:07)
[2023-07-02] MEDS ORDERED: ceFAZolin 2 GM VIAL ONE (19:13)
--- NOTE | 2023-07-02 19:16 | CONSULTATION NOTE ---
Surgery Consult - Admit Date Hospital Admission Date: 07/02/23 - Consult Date Consult Date: 07/02/23 Requesting Provider: Jovita Ureña - Home Meds/Allergies Home Medications: Patient History Medication Instructions Recorded Confirmed cephALEXin [Keflex] 250 mg PO ONCE 07/29/19 07/29/19 Allergies/Adverse Reactions: Allergies Allergy/AdvReac Type Severity Reaction Status Date / Time No Known Drug Allergies Allergy Verified 10/03/20 13:10 - Vital Signs Vital Signs: Last Vital Signs Temp 98.2 F 07/02/23 12:06 Pulse 88 07/02/23 12:06 Resp 15 07/02/23 12:06 BP 121/73 07/02/23 12:06 Pulse Ox O2 Flow Rate Intake & Output: Intake & Output 06/29/23 06/30/23 07/01/23 07/02/23 23:59 23:59 23:59 23:59 Intake Total 0 Output Total 300 Balance -300 - Lab Results Result Diagrams: 07/02/23 11:50 - Consultation Note Consultation Note: HPI: Patient is a 32-year-old -0-1-0 at 39 weeks 0 days gestation by 8-week ultrasound who was admitted today for term labor. She has been pushing for approximately 2 hours with intermittent category 2, but overall reassuring heart rate tracing. She is currently +2 station, but requesting section for maternal exhaustion. All other symptoms reviewed and were negative except per HPI. Course See primary H&P PMH Depression PSH ACL repair OB History -0-1-0 1. Elective SH Denies tobacco, alcohol, drugs Family History Noncontributory Allergies No known drug allergies Medications vitamins Physical exam: General: Alert, oriented, no acute distress Head: Normal cephalic atraumatic Eyes: PERRLA, extraocular motions intact. Respiratory: Normal rate of respiration. No accessory muscle use, normal respiratory effort. Cardiovascular: Regular rate and rhythm Abdomen: Gravid, nontender, nondistended Extremities: Normal range of motion Neuro: Oriented x3. Normal movements Psych: Appropriate mood and affect. Normal judgment and insight SVE: 10/100/-2 FHT: Difficult to trace while pushing. And periods of calm, approximately 130 beats per baseline, moderate variability, accelerations present, no deceler ations. Plan 32-year-old -0-1-0 at 39 weeks 0 days gestation 1. Failure to descend -Discussed vacuum-assisted vaginal delivery versus section. Patient declines vacuum-assisted vaginal delivery. - section was recommended. Risks, benefits and alternatives were discussed including but not limited to infection, bleeding that may require blood products or hysterectomy for life saving measures, injury to surrounding organs including but not limited to bowel, bladder, ureters, tubes and ovaries and/or the baby. Should injury occur it could require longer/additional surgery to repair. The patient stated understanding and desired to proceed. All questions were answered posed by patient. -Plan for 2 g cefazolin and 500 mg azithromycin for surgical prophylaxis 2. Maternal exhaustion 3. 39 weeks gestation
[2023-07-02] MEDS ORDERED: LIDOCAINE-MPF 2% 5 ML VIAL ONE (19:26)
[2023-07-02] MEDS ORDERED: fentaNYL 100 MCG/2 ML VIAL IT ONE (19:29)
[2023-07-02] MEDS ORDERED: MORPHINE PF 5 MG/10 ML VIAL IT ONE (19:29)
[2023-07-02] MEDS ORDERED: fentaNYL 100 MCG/2 ML VIAL ONE (19:31)
[2023-07-02] MEDS ORDERED: MORPHINE PF 5 MG/10 ML VIAL ONE (19:32)
[2023-07-02] MEDS ORDERED: ePHEDrine 50 MG/ML VIAL IVP ONE (19:38)
[2023-07-02] MEDS ORDERED: SODIUM CHLORIDE 0.9% 10 ML VIAL IVP ONE (19:38)
[2023-07-02] MEDS ORDERED: PHENYLEPHRINE 10 MG/ML VIAL ONE (19:43)
[2023-07-02] MEDS ORDERED: HYDROmorphone 0.5 MG/0.5 ML SYRINGE IVP PRN (19:58)
[2023-07-02] MEDS ORDERED: ATROPINE ABBOJECT 1 MG/10 ML SYRINGE IVP PRN (19:58)
[2023-07-02] MEDS ORDERED: MORPHINE 2 MG/ML CARPUJECT IVP PRN (19:58)
[2023-07-02] MEDS ORDERED: LACTATED RINGERS 1,000 ML IV SCH ×2 (20:00→22:00)
[2023-07-02] MEDS ORDERED: ONDANSETRON 4 MG/2 ML VIAL ONE (20:01)
[2023-07-02] MEDS ORDERED: KETOROLAC 30 MG/ML VIAL ONE (20:01)
[2023-07-02] MEDS ORDERED: ACETAMINOPHEN 1,000 MG/100 ML 1,000 MG/100 ML BAG IV ONE (20:25)
[2023-07-02] MEDS ORDERED: OXYTOCIN 10 UNIT/ML VIAL ONE ×2 (20:56)
[2023-07-02] MEDS ORDERED: oxyCODONE 5 MG TABLET PO PRN (21:22)
[2023-07-02] MEDS ORDERED: ONDANSETRON ODT 4 MG TABLET TL PRN (21:22)
--- NOTE | 2023-07-02 21:25 | ANESTHESIA POST OP EVALUATION ---
Anesthesia Post Eval - Post Anesthesia Eval Vitals: Last Vital Signs Temp 37 C 07/02/23 21:05 Pulse 75 07/02/23 21:15 Resp 16 07/02/23 21:15 BP 121/61 07/02/23 21:15 Pulse Ox 96 07/02/23 21:15 O2 Flow Rate CV Function Including HR & BP: Stable Pain Control: Satisfactory Nausea & Vomiting: Negative Mental Status: Baseline Respiratory Status: Airway Patent Hydration Status: Satisfactory Anesthesia Complications: None - Other Details/Therapies Other Details/Therapies: L1 spinal level, denies pain, n/v
[2023-07-02] MEDS ORDERED: ROPIVACAINE 0.5% PF 20 ML VIAL ONE (21:33)
--- NOTE | 2023-07-02 21:34 | OPERATIVE REPORT ---
Operative Report - General Admit Date: 07/02/23 Procedure Date: 07/02/23 Planned Procedure: Primary low-transverse section Pre-Op Diagnosis: Failure to descend, maternal exhaustion Procedure Performed: Primary low-transverse section Post Op Diagnosis: Status post primary low-transverse section - Procedure Note Primary Surgeon: Krunal Sue MD Secondary Surgeon: CARMELINA Nuñez Anesthesia Provider: Darwin Geronimo CRNA Anesthesia Technique: Spinal Pathology: None IV Fluids (mL): 1,100 Estimated Blood Loss (mL): 1,000 Urine Output (mL): 200 Findings: Normal-appearing ovaries and fallopian tubes, intramural fibroid noted Complications: None - Other Other Information/Narrative: Patient was a 32-year-old -0-1-0 at 39 weeks 0 days gestation who presented in active labor. She had spontaneous rupture of membranes and progressed on her own with an epidural. During the second stage, she progressed to +2 station, but was feeling too much pain and exhaustion. I was called to discuss vacuum versus section, and after counseling, she declined vacuum-assisted vaginal delivery and requested a section. section was recommended. Risks, benefits and alternatives were discussed including but not limited to infection, bleeding that may require blood products or hysterectomy for life saving measures, injury to surrounding organs including but not limited to bowel, bladder, ureters, tubes and ovaries and/or the baby. Should injury occur it could require longer/additional surgery to repair. The patient stated understanding and desired to proceed. All questions were answered posed by patient. Prior to being taken to the OR, 2 grams of cefazolin IV and 500 mg of azithromycin were administered. The patient was taken to the operating room where regional anesthesia was found to be adequate. She was then prepared and draped in the usual sterile fashion in the dorsal supine position with a leftward tilt displacing the uterus. Saeed was draining to gravity. SCDs were on bilateral lower extremities. A pfannenstiel skin incision was then made with the scalpel and carried through to the underlying layer of fascia. The fascia was incised in the midline and the incision extended laterally with the Montanez scissors. The superior aspect of the facial incision was then grasped with the Kelechi clamps, elevated and the underlying rectus muscles dissected off sharply. Attention was then turned to the inferior aspect of this incision which in a similar fashion was grasped, elevated with the Kelechi clamps and the rectus muscle dissected off sharply. The rectus muscles were in the midline. The peritoneum identified, grasped with the pick-ups and entered sharply with the Metzenbaum scissors. The peritoneal incision was then extended superiorly and inferiorly with good visualization of the bladder. The bladder blade was inserted. The vesicouterine peritoneum was identified, grasped with the pick-ups, and entered sharply with Metzenbaum scissors. This incision was then extended laterally and the bladder flap created digitally. The bladder blade was reinserted. The lower uterine segment was identified and incised in a transverse fashion with the scalpel. The uterine incision was then extended bluntly laterally. Entry into the uterus demonstrated meconium stained fluid. The bladder blade was removed. The fetus was in a cephalic presentation, deep in the pelvis. The infants head delivered atraumatically. The anterior shoulders were delivered followed by the posterior shoulders then the remainder of the body. The infants mouth and nose were bulb suctioned. The umbilical cord was clamped times two and cut. The was handed to the pediatric team. The placenta was removed with gentle traction. Oxytocin was added to the IV fluids and was allowed to run freely. The uterus was exteriorized and cleared of all clots and debris. The uterine incision was inspected and found to have an extension extending towards the right lower uterine segment/cervical area and was repaired with 0 Vicryl in a running, locked fashion incorporated into the hysterotomy repair. A second imbricating layer was performed. There was noted to be an expanding hematoma. Due to the blood loss and expanding hematoma and a brief period of hypotension, I requested 2 units to be crossmatched. After drawing the uterine vessels away laterally with my opposing hand, [id number] stitches were used on each apex of the hemoatoma and the expansion stopped. Upon inspection, the repaired hysterotomy was found to be hemostatic. The posterior portion of the uterus noted a serosal tear was noted, and repaired with 2-0 Vicryl. Surgicel was placed over the irritated area. Reexamination of the hysterotomy shows it to be hemostatic and hematoma not expanding. The uterus was firm and returned to the abdomen. The gutters were cleared of all clots and debris. Again, the hysterotomy was examined and noted to be hemostatic and without expansion of the hematoma. The muscles were examined and found to be hemostatic. The fascia was reapproximated with 0 Vicryl in a running fashion. The subcutaneous tissue was closed with 2-0 Vicryl. The skin was closed in a subcuticular fashion with 4-0 Monocryl. The patient tolerated the procedure well. Sponge, lap and needle counts were correct times three. The patient was taken to the recovery room in stable condition. I appreciate the assistance of CARMELINA Nuñez during this procedure, and the assistance in retraction, visualization, dissection, and overall assistance during the case were instrumental to the patient's wellbeing.
[2023-07-02] MEDS ORDERED: KETOROLAC 30 MG/ML VIAL IVP SCH (22:00)
[2023-07-02] MEDS: ACETAMINOPHEN 500 MG TABLET PO SCH (23:43)
[2023-07-03] MEDS ORDERED: SODIUM CHLORIDE FLUSH 0.9% 10 ML SYRINGE IVP SCH (01:00)
[2023-07-03] MEDS: SODIUM CHLORIDE FLUSH 0.9% 10 ML SYRINGE IVP SCH ×4 (02:14→17:00)
[2023-07-03] MEDS: KETOROLAC 30 MG/ML VIAL IVP SCH ×3 (02:14→14:03)
[2023-07-03 04:43] LABS: BASOPHILS % (AUTO) 0.3 %; HCT - HEMATOCRIT 28.7 % (37.0-47.0); HGB - HEMOGLOBIN 9.4 g/dL (12.0-16.0); LYMPHOCYTES # (AUTO) 1.4 10^3/uL (1.5-3.5); LYMPHOCYTES % (AUTO) 9.8 %; MEAN CORPUSCULAR HEMOGLOBIN 28.1 pg (27.0-31.0); MEAN CORPUSCULAR HGB CONC 32.8 g/dL (32.0-36.0); MEAN CORPUSCULAR VOLUME 85.9 fL (81.0-99.0); MEAN PLATELET VOLUME 10.6 fL (7.9-10.8); MONOCYTES # (AUTO) 0.7 10^3/uL (0.0-1.0); NEUTROPHILS # (AUTO) 12.4 10^3/uL (1.5-6.6); NEUTROPHILS % (AUTO) 84.3 %; PLT - PLATELET COUNT 177 10^3/uL (130-450); RED BLOOD COUNT 3.34 10^6/uL (4.20-5.40); RED CELL DISTRIBUTION WIDTH 14.6 % (12.0-15.0); WHITE BLOOD COUNT 14.7 x10^3/uL (4.8-10.8)
[2023-07-03] MEDS: DOCUSATE SODIUM 100 MG CAPSULE PO SCH ×2 (07:58→20:12)
--- NOTE | 2023-07-03 09:47 | PROVIDER PROGRESS NOTE ---
Subjective - Prog Note Date Prog Note Date: 07/03/23 Prog Note Time: 09:47 - Subjective Subjective: Subjective Patient reports she is doing well. Lochia appropriate. Denies heavy bleeding. Ambulating. Pelvic and abdominal pain well-controlled. Tolerating oral intake. Diet: Regular. Voiding without difficulty. Passing flatus. Denies BM. Patient is bonding with baby in room Breast feeding going well. Denies feeling lightheaded, dizzy or excessively fatigued. control: Partner vasectomy Objective General: Alert, oriented, no apparent distress. Cardiovascular: Regular rate. Regular rhythm. Lungs: No increased work of breathing. Abdomen: Uterus firm. Below umbilicus. No guarding or rebound. Extremities: No pain on palpation. No cords palpated. Distal pulses intact. Incision: Bandage in place. Assessment and Plan day 1. -Routine care -Anticipate discharge tomorrow Objective - Vital Signs/Intake & Output Vital Signs: Vital Signs x48h Temp Pulse Resp BP Pulse Ox 07/03/23 08:55 98.8 F 92 15 102/58 L 98 07/03/23 06:14 98.1 F 73 16 105/59 L 98 07/03/23 02:00 98.4 F 77 16 112/51 L 99 Intake & Output: Intake & Output 06/30/23 07/01/23 07/02/23 07/03/23 23:59 23:59 23:59 23:59 Intake Total 1980 400 Output Total 500 950 Balance 1480 -550 - Lab Results Fish Bones: 07/03/23 04:06 Other Labs: Lab Results x24hrs 07/03/23 07/02/23 07/02/23 Range/Units 04:06 12:56 11:50 WBC 14.7 H 10.2 (4.8-10.8) x10^3/uL RBC 3.34 L 4.28 (4.20-5.40) 10^6/uL Hgb 9.4 L 12.0 (12.0-16.0) g/dL Hct 28.7 L 36.2 L (37.0-47.0) % MCV 85.9 84.6 (81.0-99.0) fL MCH 28.1 28.0 (27.0-31.0) pg MCHC 32.8 33.1 (32.0-36.0) g/dL RDW 14.6 14.4 (12.0-15.0) % Plt Count 177 243 (130-450) 10^3/uL MPV 10.6 10.3 (7.9-10.8) fL Neut # (Auto) 12.4 H 8.3 H (1.5-6.6) 10^3/uL Lymph # (Auto) 1.4 L 1.4 L (1.5-3.5) 10^3/uL [place] # (Auto) 0.7 0.4 (0.0-1.0) 10^3/uL Eos # (Auto) 0.0 0.0 (0.0-0.7) 10^3/uL Baso # (Auto) 0.0 0.0 (0.0-0.1) 10^3/uL Absolute Nucleated RBC 0.00 0.00 x10^3/uL Nucleated RBC % 0.0 0.0 /100WBC Blood Type Blood Type Recheck O POSITIVE Antibody Screen Crossmatch IS Only 07/02/23 Range/Units 11:50 WBC (4.8-10.8) x10^3/uL RBC (4.20-5.40) 10^6/uL Hgb (12.0-16.0) g/dL Hct (37.0-47.0) % MCV (81.0-99.0) fL MCH (27.0-31.0) pg MCHC (32.0-36.0) g/dL RDW (12.0-15.0) % Plt Count (130-450) 10^3/uL MPV (7.9-10.8) fL Neut # (Auto) (1.5-6.6) 10^3/uL Lymph # (Auto) (1.5-3.5) 10^3/uL [place] # (Auto) (0.0-1.0) 10^3/uL Eos # (Auto) (0.0-0.7) 10^3/uL Baso # (Auto) (0.0-0.1) 10^3/uL Absolute Nucleated RBC x10^3/uL Nucleated RBC % /100WBC Blood Type O POSITIVE Blood Type Recheck Antibody Screen NEGATIVE Crossmatch IS Only See Detail
[2023-07-03] MEDS: SIMETHICONE CHEW 80 MG TABLET PO PRN ×2 (14:08→20:12)
--- NOTE | 2023-07-03 15:34 | HISTORY & PHYSICAL EXAMINATION ---
Admit History - Smoking Status: Never smoker - HPI Current EDU 07/09/23 Gestation 39 Weeks and 0 Days 2 Vital Signs Temperature 98.2 F 07/02/23 12:06 Heart Rate 88 07/02/23 12:06 Respiratory Rate 15 07/02/23 12:06 Blood Pressure 121/73 07/02/23 12:06 Temperature 97.9 F 07/03/23 14:12 Heart Rate 88 07/03/23 14:12 Respiratory Rate 14 07/03/23 14:12 Blood Pressure 106/57 L 07/03/23 14:12 O2 Saturation 100 07/03/23 14:12 If not protocol: Oxygen Flow, liters/minute Meds/Allgy - Home Medications Home Medications: Ambulatory Orders Medication Instructions Recorded Confirmed cephALEXin [Keflex] 250 mg PO ONCE 07/29/19 07/29/19 Cyclobenzaprine [Flexeril] 10 mg PO TID PRN #20 tablet 10/03/20 - Allergies Allergies/Adverse Reactions: Allergies Allergy/AdvReac Type Severity Reaction Status Date / Time No Known Drug Allergies Allergy Verified 10/03/20 13:10 Physical - Abdominal Exam Vital Signs: Temp Pulse Resp BP Pulse Ox O2 Flow Rate 97.9 F 88 14 106/57 L 100 07/03/23 14:12 07/03/23 14:12 07/03/23 14:12 07/03/23 14:12 07/03/23 14:12
[2023-07-03] MEDS: ACETAMINOPHEN 500 MG TABLET PO SCH (16:35)
[2023-07-03] MEDS: IBUPROFEN 600 MG TABLET PO SCH (20:12)
[2023-07-03] MEDS ORDERED: IBUPROFEN 600 MG TABLET PO SCH (22:00)
[2023-07-04] MEDS: ACETAMINOPHEN 500 MG TABLET PO SCH ×2 (00:07→08:57)
[2023-07-04] MEDS: IBUPROFEN 600 MG TABLET PO SCH ×3 (01:57→15:29)
[2023-07-04] MEDS: DOCUSATE SODIUM 100 MG CAPSULE PO SCH (08:58)
[2023-07-04 09:06] VITALS: O2SAT 100
--- NOTE | 2023-07-04 10:33 | Discharge Plan ---
Discharge Plan Problem Reviewed?: Yes Disposition: Home, Self Care Condition: Good Prescriptions: Acetaminophen [Acetaminophen Extra Strength] 1,000 mg PO Q8H PRN #60 tablet PRN Reason: Pain Ibuprofen [Motrin] 600 mg PO Q6H PRN #30 tab PRN Reason: Pain oxyCODONE [Roxicodone] 5 mg PO Q4H PRN #10 tablet PRN Reason: Severe Pain Diet: Regular Activity Restrictions: Additional Comments Shower Restrictions: No Driving Restrictions: Yes (until cleared by provider) Instruction Topics: C Section Dc, Depression No Smoking: If you smoke, Please STOP! Call for help. Follow-up with: Krunal Sue MD [Provider Admit Priv/Credential] -
--- NOTE | 2023-07-04 10:38 | DISCHARGE SUMMARY ---
"Discharge Summary Admit Date: 07/02/23 Discharge Date: 07/04/23 Discharging Provider: Krunal martines MD Code Status: Attempt Resuscitation Condition at Discharge: Good Discharge Disposition: 01 Home, Self Care - DIAGNOSES Admission Diagnoses: 39 weeks gestation Term labor Discharge Diagnoses with Status of Each Condition: 39 weeks gestation Term labor Category 2 tracing Failure to descend Maternal exhaustion Status post primary low-transverse section Delivery of live arnold All resolved - HPI History of Present Illness: Subjective Patient reports she is doing well. Lochia appropriate. Denies heavy bleeding. Ambulating. Pelvic and abdominal pain well-controlled. Tolerating oral intake. Diet: Regular. Voiding without difficulty. Passing flatus. Denies BM. Patient is bonding with baby in room Breast feeding going well. Denies feeling lightheaded, dizzy or excessively fatigued. Control: Partner vasectomy Objective General: Alert, oriented, no apparent distress. Cardiovascular: Regular rate. Regular rhythm. Lungs: No increased work of breathing. Abdomen: Uterus firm. Below umbilicus. No guarding or rebound. Extremities: No pain on palpation. No cords palpated. Distal pulses intact. Incision: Clean, dry, and intact. - CONSULTS | PROCEDURES Consultations: Anesthesia for epidural - HOSPITAL COURSE Hospital Course: Patient is admitted at 39 weeks for term labor. She was lara and had spontaneous rupture of membranes. She made second stage and pushed for approximately 2 hours, but with increased pain, and maternal exhaustion, we discussed vacuum-assisted vaginal delivery versus section and patient elected for primary section. section was complicated by a hematoma of the uterine serosa, but was became hemostatic with suture and pressure. She also had a mild hemorrhage with an EBL of 1000. course was unremarkable and she desired to go home on postoperative day 2. We discussed increased risk of depression based on current antidepressant use and history of depression. weight 3940 g - ALLERGIES Allergies/Adverse Reactions: Allergies Allergy/AdvReac Type Severity Reaction Status Date / Time No Known Drug Allergies Allergy Verified 10/03/20 13:10 - MEDICATIONS Home Medications: Ambulatory Orders Medication Instructions Recorded Confirmed cephALEXin [Keflex] 250 mg PO ONCE 07/29/19 07/29/19 Cyclobenzaprine [Flexeril] 10 mg PO TID PRN #20 tablet 10/03/20 Acetaminophen [Acetaminophen Extra 1,000 mg PO Q8H PRN #60 tablet 07/04/23 Strength] Ibuprofen [Motrin] 600 mg PO Q6H PRN #30 tab 07/04/23 oxyCODONE [Roxicodone] 5 mg PO Q4H PRN #10 tablet 07/04/23 - LABS Result Diagrams: 07/03/23 04:06 - FOLLOW UP Follow Up: With Krunal Sue MD at [facility] in 1 week - TIME SPENT Time Spent in Discharge (Minutes): 20"
[2023-07-04] MEDS ORDERED: MEASLES,MUMPS & RUBELLA VACC 0.5 ML VIAL SUBQ ONE (15:19)
[2023-07-04] MEDS ORDERED: VARICELLA VACCINE LIVE/PF 1,350 UNIT/0.5 ML VIAL SUBQ ONE (15:19)
--- NOTE | 2023-07-04 17:01 | Labor Flowsheet ---
Labor Flowsheet Datetime Report Generated by CPN: 07/04/2023 17:01 Datetime: 07/04/2023 16:20 VITAL SIGNS NBP Sys/Mayela/Mean (mmHg): 122 : 71 : 85 Pulse: 77 SpO2 (%): 100 LaborFlag: Labor Datetime: 07/02/2023 19:15 Patient Care Comments: Patient to OR via gurney Datetime: 07/02/2023 19:02 PATIENT CARE IV/Blood Work: New IV Bag Hung I/O Interventions: Saeed Cath Inserted Datetime: 07/02/2023 19:00 UTERINE ACTIVITY Monitor Mode: External Frequency (min): 1-2.5 Quality: Strong Duration (sec): 50-60 Pattern: Normal: <= 5 Contractions in 10 Minutes Resting Tone (Palpate): Relaxed ASSESSMENT A Monitor Mode: External US FHR Baseline Rate : 125 Variability: Moderate 6-25 bpm Accelerations: None Decelerations: Prolonged Category: Category II Comments: Plan to proceed to OR for primary CS Communication Comments: Patient declines vaccuum attempt, elects for delivery. OR on-call team notified. Datetime: 07/02/2023 18:51 COMMUNICATION Communication: Provider at Bedside Provider Notified (Name): Dr. Sue at bedside for consultation Datetime: 07/02/2023 18:45 Actions for Decelerations: Side to Side; Provider Notified STAGE 2 Pushing: Refusing to Push; Pt States too Tired to Push Pushing Position: Pushing with Contractions Pushing Progress: Descent with Pushing Datetime: 07/02/2023 18:36 Station: 3 Datetime: 07/02/2023 18:30 Monitor Interventions for FHR: Ultrasound Adjusted Datetime: 07/02/2023 17:56 Patient Position/Activity: Left Lateral Stage 2 Comments: tug of war Datetime: 07/02/2023 17:51 Temperature (C): 36.9 Datetime: 07/02/2023 17:15 Monitor Interventions for UA: Finger Adjusted Datetime: 07/02/2023 17:06 VAGINAL EXAM Dilatation (cm): 10.0 Exam by: Niranjan Datetime: 07/02/2023 17:00 Contraction Comments: Difficulty tracing contractions, RN at bedside Datetime: 07/02/2023 16:23 Effacement (%): 100 Vaginal Exam Comments: Right side"lip" Datetime: 07/02/2023 16:04 Membrane Status: Ruptured Membranes Rupture Method: Spontaneous Amniotic Fluid Color: Clear Amniotic Fluid Amount: Moderate Amniotic Fluid Odor: None Datetime: 07/02/2023 15:25 Membranes Ruptured Date/Time: 07/02/2023 16:04 Datetime: 07/02/2023 13:51 Epidural Procedure Other: Pump Started Datetime: 07/02/2023 13:41 Vital Sign Comments: Patients arm bent, attempting to reposition post epidural placement. Datetime: 07/02/2023 13:37 Epidural Procedure: Test Dose Datetime: 07/02/2023 13:19 ANESTHESIA Anesthesia Plans: Epidural Epidural Positioning: Sitting Anesthesia Comments: Ben Calloway FORESTRY CONSULTANT at bedside, consented pt. Datetime: 07/02/2023 13:09 Pain Coping: Requesting Pain Medication or Epidural Pain Assessment Comments: Patient getting out of jaccuzzi. States urge to push with last contracti on. FORESTRY CONSULTANT edward requested for epidural. Datetime: 07/02/2023 12:22 PAIN Pain Scale: 10 Pain Goal: 5 Pain Relief Measures: Comfort Measures Comfort Measures: Hot Shower/Tub/Spa Datetime: 07/02/2023 11:34 Stage of : Labor
[2023-07-04 17:03] VITALS: BP 122/71
== END 2023-07-04 16:30 | disposition home or self-care (01) | DRG 787 ==
LOC: UNDOADMIN 11:27 → FBP 11:27
PROVIDERS: ADMIT Nurse Practitioner Obstetrics & Gynecology; ATTEND Obstetrics & Gynecology
PROC: 10D00Z1 Extraction of Products of Conception, Low, Open Approach (ICD-10-PCS; principal; 2023-07-02 19:00)
DX: O32.4XX0 Maternal care for high head at term, not applicable or unspecified (principal); O72.1 Other immediate postpartum hemorrhage; Z3A.39 39 weeks gestation of pregnancy; Z37.0 Single live birth; O90.2 Hematoma of obstetric wound; O75.81 Maternal exhaustion complicating labor and delivery
CPT/HCPCS: 36415; 85025; 86850; 86900; 86901; 86920; 90716; A9270; J0131; J1200; J2274; J2795; J7120

== ENCOUNTER 2024-04-14 11:30 | Outpatient (CLI) | payer OTHER ==
[2024-04-14 18:15] LABS: BASOPHILS % (AUTO) 0.4 %; EOSINOPHILS # (AUTO) 0.2 10^3/uL (0.0-0.7); EOSINOPHILS % (AUTO) 2.2 %; LYMPHOCYTES # (AUTO) 1.7 10^3/uL (1.5-3.5); LYMPHOCYTES % (AUTO) 25.3 %; MEAN CORPUSCULAR HGB CONC 31.4 g/dL (32.0-36.0); MEAN PLATELET VOLUME 9.6 fL (7.9-10.8); MONOCYTES # (AUTO) 0.5 10^3/uL (0.0-1.0); MONOCYTES % (AUTO) 7.2 %; NEUTROPHILS # (AUTO) 4.4 10^3/uL (1.5-6.6); NEUTROPHILS % (AUTO) 64.6 %; PLT - PLATELET COUNT 267 10^3/uL (130-450); RED BLOOD COUNT 4.07 10^6/uL (4.20-5.40); RED CELL DISTRIBUTION WIDTH 13.5 % (12.0-15.0); WHITE BLOOD COUNT 6.8 x10^3/uL (4.8-10.8)
[2024-04-14 18:30] LABS: CALCIUM 8.8 mg/dL (8.5-10.3); CREATININE 0.7 mg/dL (0.6-1.3); POTASSIUM 3.4 mmol/L (3.5-4.5)
== END 2024-04-14 11:31 | disposition home or self-care (01) ==
LOC: LAB.N 11:30
PROVIDERS: ATTEND Physician Assistant Medical
DX: R31.9 Hematuria, unspecified (principal)
CPT/HCPCS: 36415; 80048; 85025; 87086

== ENCOUNTER 2024-04-18 09:31 | Outpatient (CLI) | payer OTHER ==
--- NOTE | 2024-04-18 10:21 | CT Report ---
PROCEDURE: Abdomen/Pelvis WO INDICATIONS: HEMATURIA TECHNIQUE: A CT scan of the abdomen and pelvis was performed without the use of intravenous contrast. Images we re recorded and evaluated at appropriate window settings. Reformats: coronal and sagittal. For radiat ion dose reduction, the following was used: automated exposure control, adjustment of mA and/or kV ac cording to patient size. COMPARISON: None. FINDINGS: Image quality: Diagnostic Lower chest: Possible 3 mm nodule in the right lower lobe (9/). Another possible micronodule is seen in the left lower lobe (9/17). These are generally low suspicion, this patient does not meet criteri a for Fleischner follow-up guidelines, follow up is at clinical discretion. No pleural effusions. Mil dly patulous distal esophagus. Liver: Solid organs are not well evaluated in the absence of IV contrast. No contour deforming mass Gallbladder and biliary system: Unremarkable gallbladder. No biliary ductal dilation Pancreas: No ductal dilation Spleen: Nonenlarged Adrenals: No discrete nodules Kidneys: No calcified stone in the kidneys. No hydronephrosis. No ureter dilation. There are small pe lvic calcifications, likely phleboliths. Suspected right superior pole cyst. No other contour deformi ng solid mass. Vessels and lymph nodes: No abdominal aortic aneurysm. No pathologic lymph nodes by size criteria Bowel and peritoneum: No evidence of small bowel obstruction. Colonic diverticula are seen. No pathol ogic ascites Body wall: Small fat-containing umbilical hernia. Pelvis: Bladder is not well assessed on this study, overall unremarkable. Possible left follicular cy st. Reproductive organs also not well assessed on this study, consider ultrasound there is concern. T here may be a fundal uterine fibroid. Bones: Possible lumbosacral transitional anatomy. No acute or suspicious osseous findings. IMPRESSION: No calcified stones or hydronephrosis. Other findings as above. In the setting of hematuria, consider further evaluation with cystoscopy and CT IVP. Reviewed by: Jack Gonzalez MD on 04/18/2024 10:19 AM PDT Approved by: Jack Gonzalez MD on 04/18/2024 10:19 AM PDT Station ID: [id number]
== END 2024-04-18 09:32 | disposition home or self-care (01) ==
LOC: DI 09:31
PROVIDERS: ATTEND Physician Assistant Medical
DX: R31.9 Hematuria, unspecified (principal); R93.5 Abnormal findings on diagnostic imaging of other abdominal regions, including retroperitoneum; K57.30 Diverticulosis of large intestine without perforation or abscess without bleeding; K42.9 Umbilical hernia without obstruction or gangrene